=== PATIENT | male | born 2000 | race Caucasian/White ===

== ENCOUNTER 2023-02-22 10:34 | Emergency (ER) | payer OTHER, SELFPAY ==
[2023-02-22 10:52] VITALS: BP 122/76; PULSE 83; RESP 16; TEMP 36.6; O2SAT 99
--- NOTE | 2023-02-22 10:52 | ED.ABDPAIN ---
HPI - Abdominal Pain General Chief Complaint: Abdominal Pain Stated Complaint: painful abdomen; hernia? Time Seen by Provider: 02/22/23 10:52 Source: patient Mode of arrival: ambulatory Limitations: no limitations History of Present Illness HPI narrative: 22-year-old male presents with c/o R lower ABD pain for 4 days. States pain was constant and dull. Continues to be constant but pain getting progressively worse. Girlfriend here with pt and states she noticed that pt seems stiff when moving like his pain is bad . Denies fever/chills. No changes to bowels. No urinary symptoms. Pain worse with movment. All systems reviewed and negative except as noted above. Related Data Home Medications Medication Instructions Recorded Confirmed No Home Medications 02/22/23 02/22/23 Allergies Allergy/AdvReac Type Severity Reaction Status Date / Time No Known Allergies Allergy Verified 02/22/23 10:49 Review of Systems Review of Systems: CONSTITUTIONAL: Denies fever, chills, or sweats. EYES: Denies visual changes, redness, or discharge. ENT: Denies rhinorrhea, congestion, sore throat, or otalgia. CARDIOVASCULAR: Denies chest pain, palpitations, or edema. RESPIRATORY: Denies cough or dyspnea. GASTROINTESTINAL: Reports right-sided abdominal pain. Denies nausea, vomiting, or diarrhea. GENITOURINARY: Denies dysuria or hematuria. SKIN: Denies rash or itching. MUSCULOSKELETAL: Denies back pain, joint pain, or myalgia. NEUROLOGIC: Denies headache, numbness, or weakness. PSYCHIATRIC: Denies anxiety or depression. All other systems reviewed are negative, except as documented in HPI. PMFSH Comments At time of signature, agree with nursing past medical, surgical, social and family history. There is no relevant family history pertinent to the presenting complaint. Exam Narrative: GENERAL: This is a well-nourished, well-developed patient, in no apparent distress. HEAD: normocephalic, atraumatic. EYES: PERRL. Sclera clear/white. Vision is grossly intact. EARS: External ears normal NOSE: External nose normal NECK: Neck supple, non-tender without lymphadenopathy, masses or thyromegaly. CARDIOVASCULAR: Regular rate and rhythm without murmurs, gallops, or rubs. RESPIRATORY: Clear to auscultation. Breath sounds equal bilaterally. No wheezes, rales, or rhonchi. GASTROINTESTINAL: Abdomen soft, tenderness to right lower quadrant, nondistended. Bowel sounds are active. No hepato-splenomegaly, or palpable masses. No guarding. SKIN: warm, Dry, intact with no suspicious lesions or rash, good texture and turgor. NEURO: awake, alert, and oriented to person, place and time. There were no obvious focal neurologic abnormalities. EXTREMITIES: No joint tenderness, effusion, or edema noted. Course Course Level of Care: Express Care Visit Vital Signs Vital signs: Vital Signs Temperature 36.6 C 02/22/23 10:52 Pulse Rate 83 02/22/23 10:52 Respiratory Rate 16 02/22/23 10:52 Blood Pressure 122/76 02/22/23 10:52 Pulse Oximetry 99 02/22/23 10:52 Temperature 36.6 C 02/22/23 10:52 Pulse Rate 83 02/22/23 10:52 Respiratory Rate 16 02/22/23 10:52 Blood Pressure 122/76 02/22/23 10:52 Pulse Oximetry 99 02/22/23 10:52 Reviewed MDM - Abdominal Pain MDM Narrative Medical decision making narrative: Right lower quadrant abdominal tenderness on palpation. Recommend patient go to ER for further evaluation of pain with CT scan to rule out appendicitis. Patient refused transfer. Discharge Plan Discharge Clinical Impression: Abdominal pain Qualifiers: Abdominal location: right lower quadrant Qualified Code(s): R10.31 - Right lower quadrant pain Patient Disposition: Left Against Medical Advice Condition: Stable Prescriptions: No Action No Home Medications Follow-up/Referrals: PHYSICIAN NOT ON STAFF,NONSTAFF [Primary Care Provider] - Time of Disposition: 11:02
== END 2023-02-22 11:00 | disposition left against medical advice (07) ==
PROVIDERS: Emergency Provider Nurse Practitioner Family
DX: R10.31 Right lower quadrant pain (principal)
CPT/HCPCS: 99211; G0463